=== PATIENT | male | born 1990 | race American Indian/Alaskan Native ===

== ENCOUNTER 2018-03-23 16:46 | Emergency (ER) | payer OTHER ==
[2018-03-23] MEDS ORDERED: MOTRIN PO ONE (19:27)
[2018-03-23] MEDS ORDERED: NORCO 5/325 PO ONE (19:27)
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
[2018-03-23 21:11] VITALS: BP 130/78
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
== END 2018-03-23 21:09 | disposition home or self-care (01) ==
LOC: ED 16:46
DX: S93.602A Unspecified sprain of left foot, initial encounter (principal); Z88.0 Allergy status to penicillin; V49.49XA Driver injured in collision with other motor vehicles in traffic accident, initial encounter; W22.11XA Striking against or struck by driver side automobile airbag, initial encounter; Y93.89 Activity, other specified; Y99.8 Other external cause status; Y92.89 Other specified places as the place of occurrence of the external cause
CPT/HCPCS: 72040

== ENCOUNTER 2018-11-11 23:03 | Emergency (ER) | payer OTHER ==
[2018-11-12 00:07] VITALS: BP 138/87
[2018-11-12] MEDS ORDERED: NACL 0.9% 1000 ML 1,000 ML IV ONE (00:34)
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
[2018-11-12] MEDS ORDERED: ULTRAM PO ONE (00:37)
[2018-11-12] MEDS ORDERED: FLEXERIL PO ONE (00:37)
[2018-11-12 00:43] LABS: Basophils % (Auto) 0.4 % (0.0-1.8); Eosinophils # (Auto) 0.1 K/mm3 (0.0-0.4); Eosinophils % (Auto) 1.1 % (0.0-4.3); Hematocrit 46.1 % (35.5-45.6); Hemoglobin 16.1 gm/dl (11.8-15.2); Lymphocytes # (Auto) 1.7 K/mm3 (1.2-5.4); Lymphocytes % (Auto) 19.7 % (13.4-35.0); Mean Corpuscular HGB Conc 35 % (32-34); Mean Corpuscular Volume 89 fl (84-94); Monocytes # (Auto) 0.3 K/mm3 (0.0-0.8); Monocytes % (Auto) 3.6 % (0.0-7.3); Platelet Count 163 K/mm3 (140-440); Red Blood Count 5.18 M/mm3 (3.65-5.03); Red Cell Distribution Width 15.2 % (13.2-15.2)
[2018-11-12 00:46] LABS: INR 0.94 (0.87-1.13)
[2018-11-12 00:52] LABS: Alanine Aminotransferase 38 units/L (7-56); Albumin 4.4 g/dL (3.9-5); BUN/Creatinine Ratio 7; Blood Urea Nitrogen 8 mg/dL (9-20); Calcium 8.8 mg/dL (8.4-10.2); Hemolysis Index 10
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
--- NOTE | 2018-11-12 01:18 | Cat Scan Report ---
FINAL REPORT EXAM: CT HEAD/BRAIN WO CON HISTORY: Trauma TECHNIQUE: CT evaluation was performed of the head without the use of intravenous contrast administr ation. PRIORS: None. FINDINGS: Normal density, size and configuration of the brain parenchyma and CSF containing spaces. No evidence of acute hemorrhage. no mass effect, edema or shift of midline structures. Visualized paranasal sinu ses are clear. No pathologic fluid collection. Calvarium is normal. IMPRESSION: No CT evidence of acute intracranial process. No displaced skull fracture.
== END 2018-11-12 02:44 | disposition home or self-care (01) ==
LOC: ED 23:03
DX: S39.012A Strain of muscle, fascia and tendon of lower back, initial encounter (principal); S20.219A Contusion of unspecified front wall of thorax, initial encounter; M19.90 Unspecified osteoarthritis, unspecified site; Z88.0 Allergy status to penicillin; V49.49XA Driver injured in collision with other motor vehicles in traffic accident, initial encounter; Y93.89 Activity, other specified; Y92.488 Other paved roadways as the place of occurrence of the external cause; Y99.8 Other external cause status
CPT/HCPCS: 36415; 70450; 71045; 72100; 80053; 82550; 85025; 85610; 85730; 93005; 93010; 99284; J7030

== ENCOUNTER 2019-05-31 16:00 | Emergency (ER) | payer SELFPAY ==
--- NOTE | 2019-05-31 16:07 | Emergency Department Report ---
Blank Doc - Documentation Documentation: This is a 28-year-old male that presents with intermittnet rachele pain. Denies any injuries or trauma. Denies any urinary symptoms. This initial assessment/diagnostic orders/clinical plan/treatment(s) is/are subject to change based on patient's health status, clinical progression and re- assessment by fellow clinical providers in the ED. Further treatment and workup at subsequent clinical providers discretion. Patient/guardians urged not to elope from the ED as their condition may be serious if not clinically assessed and managed. Initial orders include: 1- Patient sent to [facility] for further evaluation and treatment
[2019-05-31 16:08] VITALS: BP 139/87
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
== END 2019-05-31 18:45 | disposition home or self-care (01) ==
LOC: ED 16:00
DX: M54.5 Low back pain (principal); Z79.899 Other long term (current) drug therapy; Z88.0 Allergy status to penicillin
CPT/HCPCS: 99282